=== PATIENT | male | born 1980 | race Asian ===

== ENCOUNTER 2017-01-04 10:04 | Emergency (ER) | payer MEDICAID, OTHER ==
[~2017-01-04] VITALS: Ht 182.9 cm; Wt 103.7 kg
[2017-01-04 10:05] VITALS: BP 161/99
[2017-01-04] MEDS ORDERED: HYDROcodone/APAP 5/325 TABLET ONE (11:09)
[2017-01-04] MEDS ORDERED: INDOMETHACIN 50 MG CAPSULE ONE (11:10)
[2017-01-04] MEDS ORDERED: HYDROcodone/APAP 5/325 TABLET PO ONE (11:30)
[2017-01-04] MEDS ORDERED: INDOMETHACIN 50 MG CAPSULE PO ONE (11:30)
== END 2017-01-04 12:40 | disposition home or self-care (01) ==
LOC: ED 10:31
DX: M25.511 Pain in right shoulder (principal); M25.521 Pain in right elbow; M10.9 Gout, unspecified

== ENCOUNTER 2017-05-05 20:47 | Emergency (ER) | payer OTHER ==
[~2017-05-05] VITALS: Ht 182.9 cm; Wt 103.4 kg
[2017-05-05 20:52] VITALS: BP 136/95
== END 2017-05-05 21:46 ==
LOC: ED 21:40
DX: M10.9 Gout, unspecified (principal); F17.200 Nicotine dependence, unspecified, uncomplicated
CPT/HCPCS: 29130

== ENCOUNTER 2018-03-07 11:41 | Emergency (ER) | payer MEDICAID, OTHER ==
[~2018-03-07] VITALS: Ht 182.9 cm; Wt 104.9 kg
[2018-03-07 11:43] VITALS: BP 142/93
[2018-03-07 12:31] LABS: BASOPHILS % (AUTO) 0 % (0-1); EOSINOPHILS % (AUTO) 0 % (1-7); LYMPHOCYTES # (AUTO) 0.56 x10^3/uL (1-3.4); LYMPHOCYTES % (AUTO) 9 % (22-44); MD NO; MEAN CORPUSCULAR HEMOGLOBIN 30.6 pg (27.5-34.5); MEAN CORPUSCULAR VOLUME 89.8 fL (81-97); MEAN PLATELET VOLUME 7.9 fL (7.4-10.4); MONOCYTES # (AUTO) 0.05 x10^3/uL (0.2-0.8); MONOCYTES % (AUTO) 1 % (2-9); NEUTROPHILS # (AUTO) 5.47 x10^3/uL (1.8-6.8); NEUTROPHILS % (AUTO) 90 % (42-75); PLATELET COUNT 343 x10^3/uL (130-400); RED BLOOD COUNT 5.18 x10^6/uL (4.38-5.82); RED CELL DISTRIBUTION WIDTH 13.8 % (9.4-14.8)
[2018-03-07 12:40] LABS: ALBUMIN 3.2 g/dL (3.4-5.0); ANION GAP 9 mmol/L (5-15); CALCIUM 8.6 mg/dL (8.5-10.1); CHLORIDE 107 mmol/L (98-107); CREATININE 1.14 mg/dL (0.7-1.3)
== END 2018-03-07 13:50 | disposition home or self-care (01) ==
LOC: ED 13:20
DX: M13.142 Monoarthritis, not elsewhere classified, left hand (principal); M10.9 Gout, unspecified; I10 Essential (primary) hypertension; X58.XXXA Exposure to other specified factors, initial encounter; Y93.68 Activity, volleyball (beach) (court); Y92.89 Other specified places as the place of occurrence of the external cause; Y99.8 Other external cause status
CPT/HCPCS: 29125; 36415; 80048; 82040; 85025; 99285

== ENCOUNTER 2019-10-21 12:27 | Emergency (ER) | payer OTHER ==
[~2019-10-21] VITALS: Ht 182.9 cm; Wt 104.8 kg
[2019-10-21 12:33] VITALS: BP 148/99
[2019-10-21] MEDS ORDERED: OXYcodone/APAP 5/325MG TABLET PO ONE (13:00)
[2019-10-21] MEDS ORDERED: KETOROLAC 30 MG/1 ML IM ONE (13:00)
[2019-10-21] MEDS ORDERED: KETOROLAC 30 MG/1 ML ONE (13:02)
[2019-10-21] MEDS ORDERED: OXYcodone/APAP 5/325MG TABLET ONE (13:02)
--- NOTE | 2019-10-21 13:05 | NUR ---
LAB AND RADIOLOGY BEDSIDE.
[2019-10-21 13:13] LABS: MEAN CORPUSCULAR HEMOGLOBIN 31.1 pg (27.5-34.5); MEAN CORPUSCULAR HGB CONC 33.5 g/dL (33.2-36.2); MEAN CORPUSCULAR VOLUME 92.8 fL (81-97); MEAN PLATELET VOLUME 7.5 fL (7.4-10.4); PLATELET COUNT 358 x10^3/uL (130-400); RED BLOOD COUNT 4.87 x10^6/uL (4.38-5.82)
[2019-10-21 14:16] LABS: BASOPHILS # (AUTO) 0.05 x10^3/uL (0-0.1); BASOPHILS % (AUTO) 0 % (0-1); EOSINOPHILS # (AUTO) 0.22 x10^3/uL (0-0.4); EOSINOPHILS % (AUTO) 2 % (1-7); LYMPHOCYTES # (AUTO) 1.36 x10^3/uL (1-3.4); LYMPHOCYTES % (AUTO) 9 % (22-44); MD SCAN; MONOCYTES # (AUTO) 1.05 x10^3/uL (0.2-0.8); MONOCYTES % (AUTO) 7 % (2-9); NEUTROPHILS % (AUTO) 82 % (42-75)
[2019-10-21] MEDS ORDERED: COLCHICINE 0.6 MG CAPSULE PO ONE (15:00)
[2019-10-21] MEDS ORDERED: COLCHICINE 0.6 MG CAPSULE ONE (15:28)
--- NOTE | 2019-10-21 15:32 | NUR ---
Patient/Caregiver given discharge instructions and they have confirmed that they understand the instructions. Patient ambulatory with steady gait. PT LEFT WITH ALL PERSONAL BELONGINGS.
== END 2019-10-21 15:34 | disposition home or self-care (01) ==
LOC: ED 15:00
DX: M10.041 Idiopathic gout, right hand (principal); M19.041 Primary osteoarthritis, right hand; I10 Essential (primary) hypertension; F17.200 Nicotine dependence, unspecified, uncomplicated
CPT/HCPCS: 36415; 73130; 84550; 85025; 96372; 99284; J1885; J7512